=== PATIENT | male | born 1960 | race Caucasian/White ===

== ENCOUNTER → 2023-01-19 13:28 | Outpatient (POV) | payer SELFPAY ==
--- NOTE | 2023-01-19 13:57 | EXP.PAIN.OV ---
HPI Data of Consult Patient: new to practice Consult date: 01/19/23 Requesting Physician: Hiwot Hernandez APRN Primary Care Provider: Maximino Song Consult Narrative Reason for consult: Low back pain, bilateral leg pain, bilateral shoulder pain History of present illness: Mr. Steward is a 62 year old male who presents today as a new patient. He is a referral from Codey Song's office. Today he rates his pain a 7 out of 10. Patient states his pain is all in his low back and legs with the left being the worst side as well as his bilateral shoulders. 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 He does describe his pain as an aching sensation that is worse with increased activity. He states increased movement makes it worse and that he does get some relief by sitting or resting. He does state that the pain is making simple activities such as putting his socks on difficult. Patient does state his pain interferes with his ability to perform activities of daily living such as cooking and cleaning. Patient does state that his low back pain is worse than his shoulder pain. Patient denies any previous surgery or injective history. He has not had any recent imaging. He does state that he has had some imaging done at his chiropractor as well as at [place]. Patient states he has tried flwn-mui-mxoozog medications such as Tylenol and ibuprofen along with heat and ice and topicals with minimal improvement. He was started on Celebrex by his primary care doctor however had significant GI bleed and is no longer able to take NSAIDs. Patient also states he has tried muscle relaxers in the past and they did not provide additional relief. Patient has been to a chiropractor in the past and states it did provide some improvement. Patient does also have a boot on his foot related to being stomped on by a horse. Patient is currently managed with tramadol 50 mg 3 times a day from his primary care doctor. His Reid is [id number]. Its been reviewed and appropriate. CC: Hiwot Hernandez APRN [facility] Disclaimer: The information contained in this section may have been updated after the patient was seen, as this information can be updated by other users. Social History Smoking Status: Former smoker alcohol intake: never current occupational status: employed Travel in the last 8 weeks: None Review of Systems Review of Systems Review of systems:: pertinent systems reviewed and negative unless documented below Review of systems (narrative): Review of Systems: General: No recent weight changes, no fever, no sleep disturbances Respiratory: No cough, no shortness of air, no recurring pulmonary infections Cardiovascular/peripheral vascular: No chest pain, no palpitations, no edema, no shortness of breath Gastrointestinal: No new onset incontinence, normal bowel movements reported Genitourinary: No new onset incontinence Musculoskeletal: Low back pain, bilateral leg pain, bilateral shoulder pain Psychiatric: [Normal mood/affect] Neurological: [Denies weakness in extremities], [denies balance issues] Meds Home Medications and Allergies New Prescriptions to Start Prescriptions: Allergies Allergy/AdvReac Type Severity Reaction Status Date / Time No Known Allergies Allergy Verified 07/17/19 07:51 Objective Narrative: Physical Exam: General: Alert and oriented x3, no acute distress, pleasant and cooperative Lungs: Respirations even and unlabored, symmetrical chest expansion Eyes: PERRL Musculoskeletal: Flexion and extension of lumbar [spine] somewhat guarded secondary to pain, [antalgic gait noted] Neurological: Speech clear, no gross sensory deficit Oswestry index score of 21 42% Opioid Risk Tool Opioid Risk Tool-Male Family hx alcohol abuse: No Family hx illegal drugs: No Family hx rx drug abuse: No
[2023-01-19 16:13] VITALS: BP 134/83; PULSE 63; RESP 18; O2SAT 97; BMI 30.4
== END ==
PROVIDERS: PCP Family Medicine; Visit Provider Nurse Practitioner Family
DX: M54.16 Radiculopathy, lumbar region (principal); M54.50 Low back pain, unspecified; M25.511 Pain in right shoulder; M79.604 Pain in right leg; M79.605 Pain in left leg; M25.512 Pain in left shoulder
CPT/HCPCS: 99202; G0463